=== PATIENT | female | born 1980 | race Caucasian/White ===

== ENCOUNTER 2020-01-19 13:05 | Outpatient (RCR) | payer OTHER | END 2020-02-16 | disposition home or self-care (01) | LOC: WCC 13:05 | DX: T81.31XA Disruption of external operation (surgical) wound, not elsewhere classified, initial encounter (principal); L98.492 Non-pressure chronic ulcer of skin of other sites with fat layer exposed; X58.XXXA Exposure to other specified factors, initial encounter; Y92.9 Unspecified place or not applicable ==